=== PATIENT | male | born 1935 | race Caucasian/White ===

== ENCOUNTER → 2016-11-22 | Outpatient (CLI) | payer OTHER ==
--- NOTE | 2016-11-22 11:32 | RAD ---
DATE: 11/22/2016 EXAM: BREAST RIGHT, DIGITAL DIAGNOSTIC BILATERAL HISTORY: Right breast mass for 3 months. COMPARISON: None. This study was interpreted with the benefit of Computerized Aided Detection (CAD). FINDINGS: Digital MLO and CC mammograms of both breasts were obtained. No previous studies are available for comparison. The breast parenchyma is composed of scattered fibroglandular densities which can obscure a lesion on mammography (breast density code B). A 1.7 cm spiculated mass is seen within the retroareolar region of the right breast which corresponds to the patient's palpable abnormality. Further evaluation with right breast ultrasound is recommended. No dominant mass is seen within the left breast. A few benign-appearing calcifications are seen within the right both breasts. A real-time ultrasound examination of the right breast in the retroareolar region was performed and demonstrates an irregular hypoechoic solid mass within the 10 o'clock position which corresponds to the patient's palpable and mammographic abnormality. This measures 1.7 cm in greatest diameter. The mammographic and ultrasound findings are consistent with breast carcinoma. IMPRESSION: 1.7 cm spiculated solid mass is seen within the retroareolar region of the right breast which corresponds to the patient's palpable abnormality. The mammographic and ultrasound findings are consistent with breast carcinoma. BI-RADS CATEGORY: 5 HIGHLY SUGGESTIVE MALIGNANCY RECOMMENDED FOLLOW-UP: BIO BIOPSY RECOMMENDED These findings and recommendations were discussed with the patient. A message was left regarding these findings and recommendation on the voice mail of [facility] Clinical Navigator for [facility]. Mammography is a sensitive method for finding small breast cancers, but it does not detect them all and is not a substitute for careful clinical examination. A negative mammogram does not negate a clinically suspicious finding and should not result in delay in biopsying a clinically suspicious abnormality. "Our facility is accredited by the [employer] Mammography [employer]."
== END | disposition home or self-care (01) ==
LOC: MAMMO 10:12
PROVIDERS: ATTEND Physician Assistant Medical
DX: N63 Unspecified lump in breast (principal)
CPT/HCPCS: 76641; G0204; 77066

== ENCOUNTER → 2018-03-12 | Outpatient (CLI) | payer OTHER ==
--- NOTE | 2018-03-12 11:12 | RAD ---
DATE: 03/12/2018 EXAM: DIGITAL DIAGNOSTIC LT HISTORY: Previous right breast cancer COMPARISON: 11/22/2016 This study was interpreted with the benefit of Computerized Aided Detection (CAD). Breast Density: FATTY The breast parenchyma is primarily fatty replaced. Breast parenchyma level density A. FINDINGS: No new or enlarging breast densities are seen. No suspicious microcalcifications are evident. IMPRESSION: Stable left mammograms without evidence of malignancy. BI-RADS CATEGORY: 1 NEGATIVE RECOMMENDED FOLLOW-UP: 12M 12 MONTH FOLLOW-UP PQRS compliance statement: Patient information was entered into a reminder system with a target due date for the next mammogram. Mammography is a sensitive method for finding small breast cancers, but it does not detect them all and is not a substitute for careful clinical examination. A negative mammogram does not negate a clinically suspicious finding and should not result in delay in biopsying a clinically suspicious abnormality. "Our facility is accredited by the [employer] Mammography [employer]."
== END | disposition home or self-care (01) ==
LOC: MAMMO 10:00
PROVIDERS: ATTEND Physician Assistant Medical
DX: Z85.3 Personal history of malignant neoplasm of breast (principal)
CPT/HCPCS: 77065

== ENCOUNTER → 2019-03-13 | Outpatient (CLI) | payer OTHER ==
--- NOTE | 2019-03-13 19:51 | RAD ---
Study: 2-D diagnostic mammogram-left INDICATION: History of right breast cancer diagnosed in 2017. COMPARISON: Left breast diagnostic mammogram 03/12/2018 TECHNIQUE: 2-D CC and MLO mammographic views were obtained of the left breast utilizing digital acquisition and computer-aided detection. FINDINGS: No interval development of a mass, suspicious microcalcifications or architectural distortion throughout the left breast. No significant interval change. IMPRESSION: No findings concerning for malignancy throughout the left breast. BI-RADS Category 1: Negative. Recommendations: Ongoing mammographic follow-up of the left breast presumably within one year but at the discretion of the ordering clinician given patient history of malignancy. "Our facility is accredited by the [employer]amm[employer]."
== END | disposition home or self-care (01) ==
LOC: MAMMO 10:19
PROVIDERS: ATTEND Physician Assistant Medical
DX: Z85.3 Personal history of malignant neoplasm of breast (principal)
CPT/HCPCS: 77065

== ENCOUNTER → 2019-11-20 | Outpatient (CLI) | payer OTHER ==
--- NOTE | 2019-11-20 13:53 | RAD ---
DATE: 11/20/2019 1:01 PM EXAM: DIGITAL DIAGNOSTIC LT, BREAST LEFT HISTORY: 84-year-old man with a personal history of right breast cancer in 2017 presents with tenderness and thickness behind the left nipple for the past 2 months. He completed 2 years of tamoxifen COMPARISON: 03/13/2019 left mammogram CC and MLO views of the left breast were performed. This study was interpreted using Computerized Aided Detection (CAD). Targeted ultrasound of the subareolar left breast was subsequently performed. FINDINGS: Breast Density: SCATTERED The breast parenchyma shows scattered fibroglandular densities. Breast parenchyma level B There has been a slight increase in density of the subareolar left breast without a discrete mass. No suspicious calcifications architectural distortion. No nipple retraction or skin thickening. Targeted ultrasound of this area revealed no discrete mass or suspicious sonographic abnormality. IMPRESSION: Benign left breast gynecomastia BI-RADS CATEGORY: 2 BENIGN FINDING(S) RECOMMENDED FOLLOW-UP: CLIN FOLLOW UP IMAGING CLINICALLY INDICATED Recommend clinical management (which may include biopsy if there are any clinically suspicious findings). PQRS compliance statement: Patient information was entered into a reminder system with a target due date for the next mammogram. Mammography is a sensitive method for finding small breast cancers, but it does not detect them all and is not a substitute for careful clinical examination. A negative mammogram does not negate a clinically suspicious finding and should not result in delay in biopsying a clinically suspicious abnormality. "Our facility is accredited by the [employer] Mammography [employer]."
== END | disposition home or self-care (01) ==
LOC: MAMMO 12:56
PROVIDERS: ATTEND Physician Assistant Medical
DX: R92.2 Inconclusive mammogram (principal); N62 Hypertrophy of breast; Z85.3 Personal history of malignant neoplasm of breast
CPT/HCPCS: 76641; 77065

== ENCOUNTER → 2020-11-16 | Outpatient (CLI) | payer OTHER, MEDICARE ==
--- NOTE | 2020-11-16 11:23 | RAD ---
EXAM: Left breast diagnostic mammogram; left breast sonogram. HISTORY: 85-year-old male with history of right breast cancer, status post mastectomy, presents for a nnual mammography of the left breast. TECHNIQUE: Full-field digital craniocaudal and mediolateral oblique views of the left breast are obta ined for evaluation. Computer aided detection was applied. Sonographic imaging of the left breast was also performed. COMPARISON: 11/20/2019, 03/13/2019, 11/22/2016 BREAST PARENCHYMAL DENSITY: Level B - Scattered fibroglandular densities. FINDINGS: There has been interval increase in density within the subareolar aspect of the left breast , the mammographic appearance of which favors gynecomastia. No architectural distortion or suspicious calcification is seen. Sonographic imaging of the left breast demonstrates no suspicious finding. There are retroareolar chelita nges favoring gynecomastia. IMPRESSION: 1. Increasing density within the anterior left breast, the mammographic and sonographic appearance of which favors gynecomastia. This is likely due to cessation of prior tamoxifen therapy. 2. BI-RADS Category 2: Benign finding(s). Close clinical follow-up is recommended in this patient wit h a personal history of breast cancer and findings favoring left-sided gynecomastia. If your mammogram demonstrates that you have dense breast tissue, which could hide abnormalities, and if you have other risk factors for breast cancer that have been identified, you might benefit from s upplemental screening tests that may be suggested by your ordering physician. Dense breast tissue, i n and of itself, is a relatively common condition. This information is not provided to cause undue c oncern, but rather to raise your awareness and to promote discussion with your physician regarding th e presence of other risk factors, in addition to dense breast tissue. A report of your mammography re sults will be sent to you and your physician. You should contact your physician if you have any ques tions or concerns regarding this report. Mammography is a sensitive method for finding small breast cancers, but it does not detect them all a nd is not a substitute for careful clinical examination. A negative mammogram does not negate a clin ically suspicious finding and should not result in delay in biopsying a clinically suspicious abnorma lity. PQRS compliance statement - Patient information was entered into a reminder system with a target due date for the next mammogram. "Our facility is accredited by the [employer] Mammography [employer]." Electronically signed by: Maureen Mcfarland MD (11/16/2020 11:21 AM) [id number]
== END ==
LOC: MAMMO 10:27
PROVIDERS: ATTEND Nurse Practitioner Family
DX: N62 Hypertrophy of breast (principal)
CPT/HCPCS: 76641; 77065